=== PATIENT | female | born 1990 | race African-American/Black ===

== ENCOUNTER 2017-04-29 10:41 | Emergency (ER) | payer SELFPAY ==
[~2017-04-29] VITALS: Ht 160 cm; Wt 86.2 kg
[2017-04-29 10:43] VITALS: BP 131/69; PULSE 112; RESP 12; TEMP 99.8; O2SAT 99
[2017-04-29] MEDS ORDERED: ZOFR4TAB PO (13:06)
[2017-04-29] MEDS ORDERED: OSEL75 PO (13:06)
--- NOTE | 2017-04-29 13:06 | PD ---
HPI Chief Complaint: Cold / Flu Symptoms Time Seen by Provider: 12:59 Travel History International Travel<30 days: No Contact w/Intl Traveler<30days: No Traveled to known affect area: No History of Present Illness HPI 27-year-old female presents to emergency department complaining of a nonproductive cough, low back pain, chest discomfort, chills and feeling feverish since about Friday. Patient states that she also has had couple of episodes of nonbloody vomitus and frequent bowel movements. Patient states she is otherwise healthy and does not remember having sick contacts. Patient denies urinary discomfort, abdominal pain, headache. Patient denies chronic medical issues or chronic medication use. Patient does not believe she is . She believes she has the flu and is here for Tamiflu. PFSH Past Medical History ?: Not LMP: 04/17/17 Social History Tobacco Use: No Allergies-Medications (Allergen,Severity, Reaction): Coded Allergies: No Known Allergies (Unverified , 04/29/17) Reported Meds & Prescriptions Reported Meds & Active Scripts Active Zofran (Ondansetron HCl) 4 Mg Tab 4 Mg PO Q8HR PRN 3 Days Tamiflu (Oseltamivir Phosphate) 75 Mg Cap 75 Mg PO BID 5 Days Review of Systems Except as stated in HPI: all other systems reviewed are Neg Physical Exam Narrative GENERAL: Well-nourished in no distress SKIN: Focused skin assessment warm/dry. HEAD: Atraumatic. Normocephalic. EYES: Pupils equal and round. No scleral icterus. No injection or drainage. ENT: Clear rhinorrhea present. Mucous membranes pink and moist. No tonsillar hypertrophy NECK: Trachea midline. No JVD. No lymphadenopathy CARDIOVASCULAR: Tachycardic rate. No murmur appreciated. RESPIRATORY: No accessory muscle use. Clear to auscultation. Breath sounds equal bilaterally. GASTROINTESTINAL: Abdomen soft, non-tender, nondistended. MUSCULOSKELETAL: No obvious deformities. No clubbing. No cyanosis. No edema. NEUROLOGICAL: Awake and alert. No obvious cranial nerve deficits. Motor grossly within normal limits. Normal speech. PSYCHIATRIC: Appropriate mood and affect; insight and judgment normal. Data Data Last Documented VS Vital Signs Date Time Temp Pulse Resp B/P (MAP) Pulse Ox O2 Delivery O2 Flow Rate FiO2 04/29/17 13:26 1/9/18 10:43 99.8 112 12 99 Orders Orders Ed Discharge Order (04/29/17 13:06) MDM Medical Decision Making Medical Screen Exam Complete: Yes Emergency Medical Condition: Yes Differential Diagnosis Influenza, viral syndrome, respiratory infection Narrative Course 27-year-old female presents to emergency department complaining of a nonproductive cough, low back pain, chest discomfort, chills and feeling feverish since about Friday. Patient states that she also has had couple of episodes of nonbloody vomitus and frequent bowel movements. Patient states she is otherwise healthy and does not remember having sick contacts. Patient denies urinary discomfort, abdominal pain, headache. Patient denies chronic medical issues or chronic medication use. Patient does not believe she is . She believes she has the flu and is here for Tamiflu. Vital signs-slight tachycardia, mild increase in temperature but afebrile Physical exam findings essentially unremarkable except for clear rhinorrhea. I discussed treatment versus testing today. Patient states that she would rather be treated for the flu. Because the onset has been approximately 3 days , I agreed to write for Tamiflu. In addition, patient will receive Zofran for nausea. I explained to the patient the importance of a good fluid intake with a healthy nutritious diet. Explained that she needs to return to the emergency department if her symptoms persist or worsen. Diagnosis Primary Impression: Influenza Referrals: [facility] Additional Instructions: Follow up with your primary care physician within 2-3 days. If your symptoms persist or worsen, return to the emergency department. Take all medications as prescribed. Triage adequate fluid intake with a nutritious diet Scripts Ondansetron (Zofran) 4 Mg Tab 4 MG PO Q8HR Y for NAUSEA OR VOMITING for 3 Days, TAB 0 Refills Prov: Leslye Feng 04/29/17 Oseltamivir (Tamiflu) 75 Mg Cap 75 MG PO BID for Mgmt Viral Infection for 5 Days, #10 CAP 0 Refills Prov: Leslye Feng 04/29/17 Disposition: 01 DISCHARGE HOME Condition: Stable Leslye Feng Apr 29, 2017 13:06
== END 2017-04-29 13:27 | disposition home or self-care (01) ==
LOC: NEPK 10:41
DX: J11.1 Influenza due to unidentified influenza virus with other respiratory manifestations (principal)
CPT/HCPCS: 99284